=== PATIENT | male | born 1995 ===

== ENCOUNTER 2017-12-08 00:56 | Emergency (ER) | payer OTHER ==
[2017-12-08 01:13] VITALS: BP 159/97; PULSE 98; RESP 16; TEMP 98.7; O2SAT 99
[2017-12-08] MEDS ORDERED: Lidocaine 1% Inj (20ml) IJ ONE (02:21)
[2017-12-08] MEDS ORDERED: Povidone Iodine Oint 10% Foilpak UD ONE (03:21)
[2017-12-08] MEDS ORDERED: Lidocaine 1% 20 MG/2 ML PF AMP ONE (03:21)
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
== END 2017-12-08 04:02 | disposition home or self-care (01) ==
LOC: H.ER 00:56
DX: S01.01XA Laceration without foreign body of scalp, initial encounter (principal); Y04.0XXA Assault by unarmed brawl or fight, initial encounter; Y92.89 Other specified places as the place of occurrence of the external cause